=== PATIENT | male | born 1980 | race Caucasian/White ===

== ENCOUNTER → 2017-02-01 | Outpatient (CLI) | payer BC, OTHER ==
[2017-02-01 14:37] LABS: THYROID STIMULATING HORMONE 1.65 uIu/ml (0.300-4.500)
== END | disposition home or self-care (01) ==
LOC: C.LABSPEC 13:22
PROVIDERS: ATTEND Family Medicine
DX: F41.1 Generalized anxiety disorder (principal); R51 Headache; R53.83 Other fatigue

== ENCOUNTER → 2018-04-23 | Outpatient (CLI) | payer BC ==
[2018-04-23 16:13] LABS: ALBUMIN 4.1 gm/dl (3.4-5.0); ALKALINE PHOSPHATASE 70 U/L (45-117); ALT/SGPT 28 U/L (12-78); AST/SGOT 14 U/L (15-37); BLOOD UREA NITROGEN 14 mg/dl (7-18); CARBON DIOXIDE 26 mmol/L (21-32); CREATININE 0.88 mg/dl (0.60-1.40); GLUCOSE 94 mg/dl (70-99); SODIUM 138 mmol/L (136-145); TOTAL PROTEIN 7.6 gm/dl (6.4-8.2)
[2018-04-25 23:07] LABS: ANA SCREEN TC 249X NEGATIVE (NEGATIVE); ANTI-SS-A <1.0 NEG AI (<1.0 NEG); ANTI-SS-B <1.0 NEG AI (<1.0 NEG)
== END | disposition home or self-care (01) ==
LOC: C.LABSPEC 11:00
PROVIDERS: ATTEND Family Medicine
DX: R68.2 Dry mouth, unspecified (principal)